=== PATIENT | male | born 1975 | race African-American/Black ===

== ENCOUNTER 2020-02-23 21:47 | Emergency (ER) | payer BC, OTHER ==
--- NOTE | 2020-02-23 21:52 | PDOC ---
Rapid Medical Evaluation Chief Complaint: Abnormal Lab Results (Outside) Time Seen by Provider: 02/23/20 21:51 Medical Evaluation: 02/23/20 21:52 44 year old male sent by Dr. cruz for elavated potassium levels on routine labs. patient is asymptomatic. patient reports that he works, he was unable to go to PCP to repeat labs due to work history of hypertension PE; patient alert ox3 Last Vital Signs Temp Pulse Resp BP Pulse Ox 98.6 F 75 20 152/108 H 100 02/23/20 21:54 02/23/20 21:54 02/23/20 21:54 02/23/20 21:54 02/23/20 21:54 A: lab variance P: bMP, EKG. 02/23/20 21:57 02/23/20 21:59 Discharge Disposition - Diagnosis Abnormal laboratory test - Referrals - Patient Instructions - Post Discharge Activity
[2020-02-23 22:00] VITALS: TEMP 98.6; BMI 33.3
[2020-02-23 23:20] LABS: BLOOD UREA NITROGEN 19.9 mg/dL (7-18); CALCIUM 9.3 mg/dL (8.5-10.1); CREATININE 1.2 mg/dL (0.55-1.3); POTASSIUM 4.4 mmol/L (3.5-5.1)
[2020-02-23 23:29] VITALS: BP 155/108; PULSE 68
--- NOTE | 2020-02-23 23:58 | PDOC ---
History of Present Illness - General Chief Complaint: Abnormal Lab Results (Outside) Stated Complaint: FOLLOW-UP Time Seen by Provider: 02/23/20 21:51 History Source: Patient - History of Present Illness Initial Comments: 02/23/20 23:56 44-year-old male sent by PCP for elevated potassium drawn 3 days ago at the primary care office. Patient has a past medical history of hypertension. Patient denies any chest pain, palpitations, dizziness. Patient reports that he was working during normal lab hours and and was advised to come to the ER for a lab draw. Patient reports that he has not taken his blood pressure medication Past History - Medical History COPD: No HTN: Yes - Psycho-Social/Smoking History Smoking History: Never smoked Information on smoking cessation initiated: No - Substance Abuse Hx (Audit-C & DAST Scrn) How often the patient has a drink containing alcohol: Monthly or less Score: In Men: 4 or > Positive; In Women: 3 or > Positive: 1 Screen Result (Pos requires Nsg. Audit-10AR): Negative *Physical Exam - Vital Signs Last Vital Signs Temp Pulse Resp BP Pulse Ox 98.6 F 68 18 155/108 H 100 02/23/20 21:54 02/23/20 23:28 02/23/20 23:28 02/23/20 23:28 02/23/20 23:28 - Physical Exam General Appearance: Yes: Appropriately Dressed Respiratory/Chest: positive: Lungs Clear, Normal Breath Sounds Cardiovascular: positive: Regular Rhythm, Regular Rate Extremity: positive: Normal Capillary Refill, Normal Inspection Integumentary: positive: Normal Color, Dry, Warm Neurologic: positive: Fully Oriented, Alert, Normal Mood/Affect, Normal Response ED Treatment Course - LABORATORY CBC & Chemistry Diagram: 02/23/20 22:35 - ADDITIONAL ORDERS Additional order review: Laboratory Results 02/23/20 22:35 Sodium 137 Potassium 4.4 Chloride 106 Carbon Dioxide 25 Anion Gap 6 L BUN 19.9 H Creatinine 1.2 Est GFR (CKD-EPI)AfAm 83.54 Est GFR (CKD-EPI)NonAf 72.08 Random Glucose 84 Calcium 9.3 Medical Decision Making - Medical Decision Making 02/24/20 Abnormal labs P: BMP EKG b/p reading high patient did not take his blood pressure medication all day. patient is asymptomatic Discharge - Discharge Information Problems reviewed: Yes Clinical Impression/Diagnosis: Abnormal laboratory test Condition: Stable Disposition: HOME - Follow up/Referral Referrals: Nelli Chew MD [Primary Care Provider] - Call tomorrow - Patient Discharge Instructions Additional Instructions: Please follow-up with your primary doctor soon as possible return to the emergency room for any worsening symptoms - Post Discharge Activity Work/Back to School Note: Back to Work
--- NOTE | 2020-02-24 10:43 | EKG ---
Test Reason : Blood Pressure : / mmHG Vent. Rate : 067 BPM Atrial Rate : 067 BPM P-R Int : 140 ms QRS Dur : 086 ms QT Int : 396 ms P-R-T Axes : 028 005 -01 degrees QTc Int : 418 ms POOR DATA QUALITY, INTERPRETATION MAY BE ADVERSELY AFFECTED NORMAL SINUS RHYTHM VOLTAGE CRITERIA FOR LEFT VENTRICULAR HYPERTROPHY ABNORMAL ECG NO PREVIOUS ECGS AVAILABLE Confirmed by Cristhian Dorsey ([id number]) on 02/24/2020 10:43:32 AM Referred By: Confirmed By:Cristhian Dorsey
== END 2020-02-24 00:08 | disposition home or self-care (01) ==
LOC: JER 21:47
DX: R79.9 Abnormal finding of blood chemistry, unspecified (principal)
CPT/HCPCS: 36415; 80048; 93005; 93010; 99283-25